=== PATIENT | female | born 1980 | race Asian ===

== ENCOUNTER 2018-09-22 15:37 | Emergency (ER) | payer OTHER ==
[~2018-09-22] VITALS: Ht 152.4 cm; Wt 65.3 kg
[2018-09-22 15:37] VITALS: BP_SYST 150
[2018-09-22] MEDS ORDERED: PHENAZOPYRIDINE HCL 100 MG TABLET PO ONE (16:00)
[2018-09-22] MEDS ORDERED: PHENAZOPYRIDINE HCL 100 MG TABLET ONE (16:09)
[2018-09-22 16:10] VITALS: BP_SYST 150
== END 2018-09-22 16:10 | disposition home or self-care (01) ==
LOC: SED 15:37
DX: O23.42 Unspecified infection of urinary tract in pregnancy, second trimester (principal); R03.0 Elevated blood-pressure reading, without diagnosis of hypertension; Z3A.27 27 weeks gestation of pregnancy
CPT/HCPCS: 81002; 99282